=== PATIENT | male | born 1975 | race Caucasian/White ===

== ENCOUNTER 2017-10-14 00:46 | Emergency (ER) | payer OTHER ==
[~2017-10-14] VITALS: Ht 193 cm; Wt 77.1 kg
[~2017-10-14 00:46] MED LIST: Bactrim Ds Tab1 EACH PO; CEPH500 PO; DOXY100 PO; FAMO20 PO; HYDACE5 PO; IBUP600 PO; LINE600 PO; ONDA4 PO; ONDA4ODT MM; OXYACE5T PO
[2017-10-14] MEDS ORDERED: FLUO10 PO (01:17)
[2017-10-14] MEDS ORDERED: Cleocin HCl150 MG PO (01:57)
== END 2017-10-14 02:12 | disposition home or self-care (01) ==
LOC: ER 00:46
DX: L73.9 Follicular disorder, unspecified (principal); F17.200 Nicotine dependence, unspecified, uncomplicated; Z79.2 Long term (current) use of antibiotics
CPT/HCPCS: 99283